=== PATIENT | male | born 1940 | race Two or more races ===

== ENCOUNTER 2023-08-16 07:02 | Emergency (ER) | payer OTHER ==
[~2023-08-16] VITALS: Ht 188 cm; Wt 86.0 kg
[2023-08-16] MEDS ORDERED: LIDOCAINE HCL 100 MG/5ML (2%) SYRG INJ IV ONE (07:03)
[2023-08-16] MEDS ORDERED: AMIODARONE HCL (50 MG/ ML) 3 ML VIAL IV ONE (07:03)
[2023-08-16] MEDS ORDERED: EPINEPHrine HCL 1 MG/10 ML SYRG IV ONE (07:03)
[2023-08-16] MEDS ORDERED: CALCIUM CHLOR(10%) 100MG/ML 10ML SYRINGE IV ONE (07:03)
[2023-08-16] MEDS ORDERED: SODIUM BICARBONATE 8.4% INJ 50ML SYRINGE IV ONE (07:03)
[2023-08-16] MEDS ORDERED: DOPamine 1600mCg/ml 400MG/250ml NSorD5 KIT/BAG IV ONE (07:03)
[2023-08-16] MEDS ORDERED: EPINEPHrine HCL 1 MG/10 ML SYRG ONE (07:21)
[2023-08-16 07:22] VITALS: TEMP 100.9
[2023-08-16] MEDS ORDERED: AMIODARONE BOLUS KIT 100 ML IV ONE (07:26)
[2023-08-16] MEDS ORDERED: EPINEPHrine HCL 250 ML IV ONE (07:33)
[2023-08-16] MEDS ORDERED: EPINEPHrine HCL 250 ML IV SCH (07:45)
[2023-08-16] MEDS ORDERED: NOREPINEPHRINE 8 MG/250ML KIT 250 ML IV ONE (07:58)
[2023-08-16 08:00] VITALS: BP 154/79; PULSE 80; RESP 13; O2SAT 34
[2023-08-16] MEDS ORDERED: SODIUM BICARBONATE 50ML VIAL 150 ML in SOD CHL 0.45% 1,000 ML IV ONE (08:00)
[2023-08-16] MEDS ORDERED: SODIUM CHLORIDE 0.9% 5,000 ML IV ONE (08:15)
[2023-08-16] MEDS ORDERED: SODIUM BICARBONATE 8.4% INJ 50ML SYRINGE ONE (08:17)
[2023-08-16 08:18] LABS: Hematocrit 36.1 % (41.0-53.0); Hemoglobin 11.8 g/dL (13.5-17.5); Mean Corpuscular Hemoglobin 32.3 pg (28.0-32.0); Mean Corpuscular Hgb Conc. 32.7 g/dL (32.0-36.0); Mean Corpuscular Volume 98.7 fL (80.0-100.0); Red Blood Cells 3.66 10^6/uL (4.5-5.90); Red Cell Distribution Width 13.4 % (11.8-14.3); White Blood Cell 8.6 10^3/uL (4.4-10.8)
[2023-08-16 08:25] LABS: Urine Bacteria NONE SEEN /hpf (None Seen); Urine Blood 3+ /uL (Negative); Urine Clarity Clear (Clear); Urine Color Yellow (Yellow); Urine Protein, UAD Negative (Negative); Urine Specific Gravity 1.017 (1.001-1.035); Urine Urobilinogen Normal (Negative); Urine WBC 10 /hpf (0 - 3)
[2023-08-16 08:32] LABS: Band Neutrophils % (manual) 0; Basophils % (manual) 0 (0.0-2.0); Blast Cells 0; Eosinophils % (manual) 0 (0-7); Myelocytes % 0; Promyelocytes % 0; Reactive Lymphocytes 0
[2023-08-16 08:37] LABS: Albumin 3.5 g/dL (3.2-4.8); Alkaline Phosphatase 107 U/L (46-116); Anion Gap 12 (5-15); Aspartate Aminotransferase 29 U/L (13-40); BUN/Creatinine Ratio 11.9 (10.0-20.0); Blood Urea Nitrogen 19 mg/dL (9-23); Calcium 10.1 mg/dL (8.5-10.1); Carbon Dioxide 21 mmol/L (20-30); Chloride 111 mmol/L (98-107); Glucose 216 mg/dL (74-106); Sodium 144 mmol/L (136-145)
[2023-08-16 08:38] LABS: Bilirubin, Total 0.4 mg/dL (0.2-1.0); Total Protein 5.5 g/dL (5.7-8.2)
[2023-08-16 08:40] LABS: INR 1.09 (0.9-1.15); Partial Thromboplastin Time 28.1 SEC (24.5-34.5); Prothrombin Time 11.4 sec (9.3-11.8)
[2023-08-16 08:45] LABS: Alanine Aminotransferase < 9 U/L (7-40); Potassium 5.7 mmol/L (3.5-5.1)
[2023-08-16 08:47] LABS: Lymphocytes % (manual) 60 (10.0-50.0); Metamyelocytes % 1; Monocytes % (manual) 10 (0-12); Platelet Estimate Adequate
== END 2023-08-16 08:18 ==
LOC: EDUNIT# 07:02 → EDSEX 07:02 → ER 07:02 → EDBD 07:02 → ER 08:18
DX: I46.9 Cardiac arrest, cause unspecified (principal); Z86.2 Personal history of diseases of the blood and blood-forming organs and certain disorders involving the immune mechanism
CPT/HCPCS: 31500; 32551; 36415; 36556; 36600; 71045; 80053; 81001; 82805; 85007; 85027; 85610; 85730; 87070; 87205; 92950; 99291; J0171; J0282; J1265